=== PATIENT | male | born 1955 | race Caucasian/White ===

== ENCOUNTER 2017-07-29 19:24 | Emergency (ER) | payer MEDICAID ==
[~2017-07-29] VITALS: Ht 175.3 cm; Wt 108.9 kg
[~2017-07-29 19:24] MED LIST: AMOX-426 PO; FOLI-43 PO; THIA100T13 PO
[2017-07-29 19:39] VITALS: BP_SYST 129
--- NOTE | 2017-07-29 20:02 | NUR ---
Placed in room 08 . Placed on case monitor, blood pressure machine and pulse oximeter. To gown for exam. Side rails up. Report given to DAYSI Augustine.
--- NOTE | 2017-07-29 20:10 | NUR ---
Patient to ER via triage with c/o cough and "flu-like" symptoms x 2 weeks, patient reports taking OTC medication without relief. Patient reports pain from coughing, patient able to ambulate to room with slow, steady gait in no acute distress. Patient placed on cardiac montior which shows sinus rhythm without ectopy, BP monitor and pulse oximeter. Awaiting evaluation by ER MD, will continue to observe and assess.
--- NOTE | 2017-07-29 21:00 | NUR ---
Patient resting quietly in no acute distress with family at bedside. Awaiting evaluation by ER MD, will continue to observe and assess.
--- NOTE | 2017-07-29 22:00 | NUR ---
Assessment remains unchanged, family remains at bedside.
--- NOTE | 2017-07-29 22:30 | NUR ---
Patient up ambulating to bathroom with slow, steady gait without difficulty. Patient provided urine sample which was obtained and sent to lab. Dr Courtney aware of patient, and family informed that Dr Courtney would be in to evaluate patient MINH.
--- NOTE | 2017-07-29 22:40 | NUR ---
Dr Courtney at bedside to evaluate patient. Will continue to observe and assess.
[2017-07-29 22:57] LABS: BILIRUBIN,URINE NEGATIVE (NEGATIVE); BLOOD, URINE NEGATIVE (NEGATIVE); CLARITY/URINE CLEAR (CLEAR); COLOR,URINE YELLOW (YELLOW); GLUCOSE,URINE NEGATIVE (NEGATIVE); KETONES,URINE NEGATIVE (NEGATIVE); LEUKOCYTE ESTERASE ,URINE NEGATIVE (NEGATIVE); NITRITE, URINE NEGATIVE (NEGATIVE); PROTEIN URINE 1+ (NEGATIVE); UROBILINOGEN,URINE 0.2 (0.2-1.0)
[2017-07-29 23:05] VITALS: BP_SYST 136
[2017-07-29 23:05] LABS: BACTERIA,URINE RARE /HPF (None Seen); RBC,URINE 0-3 /HPF (0-3); WBC,URINE 0-3 /HPF (0-3)
--- NOTE | 2017-07-29 23:05 | NUR ---
Patient given written and verbal discharge instructions and verbalizes understanding. ER MD discussed with patient the results and treatment provided. Patient in stable condition. ID arm band removed. Rx of Robitussin DM, Zofran, Zithromax, Tylenol given. Patient educated on pain management and to follow up with PMD. Pain Scale 2. Opportunity for questions provided and answered. Patient left ER ambulating with slow, steady gait in no acute distress with family at side. Patient given a list of 24 hour pharmacies in the area.
[2017-07-29 23:07] LABS: MUCUS,URINE 1+ /LPF (None Seen)
== END 2017-07-29 23:05 | disposition home or self-care (01) ==
LOC: SED 19:24
DX: J20.9 Acute bronchitis, unspecified (principal); B34.9 Viral infection, unspecified; Z90.49 Acquired absence of other specified parts of digestive tract; Z79.899 Other long term (current) drug therapy
CPT/HCPCS: 36415; 81000-TC; 86710; 99284